=== PATIENT | male | born 1965 | race Caucasian/White ===

== ENCOUNTER 2017-01-02 03:14 | Emergency (ER) | payer BC ==
[~2017-01-02] VITALS: Ht 185.4 cm; Wt 99.8 kg
[~2017-01-02 03:14] MED LIST: KEFLEX500 MG PO; LOMOTIL TABLET1 TAB PO; NO MEDICATIONS; PEN-VEE K PO; VOLTAREN75 MG PO
[2017-01-02] MEDS ORDERED: NO MEDICATIONS (03:24)
== END 2017-01-02 03:50 | disposition home or self-care (01) ==
LOC: SED 03:14
DX: J06.9 Acute upper respiratory infection, unspecified (principal)
CPT/HCPCS: 99283